=== PATIENT | female | born 1985 | race Caucasian/White ===

== ENCOUNTER 2018-09-10 13:56 | Emergency (ER) | payer OTHER ==
[~2018-09-10] VITALS: Ht 160 cm; Wt 80.7 kg
[~2018-09-10 13:56] MED LIST: CEPH500 PO; IBUP600 PO; LORA2 PO; Norco 5-325 Ta1 EACH PO; ONDA4ODT MM; Ultram50 MG PO; VICODIN 5-3001 EACH PO
[2018-09-10] MEDS ORDERED: Naprosyn500 MG PO (15:27)
[2018-09-10] MEDS ORDERED: Norco 5-325 Ta1 EACH PO (15:27)
[2018-09-27] MEDS ORDERED: CEPH500 PO (20:20)
== END 2018-09-10 15:57 | disposition home or self-care (01) ==
LOC: ER 13:56
DX: N94.6 Dysmenorrhea, unspecified (principal); F17.210 Nicotine dependence, cigarettes, uncomplicated
CPT/HCPCS: 36415; 84703; 99283

== ENCOUNTER 2018-09-17 18:12 | Emergency (ER) | payer OTHER ==
[~2018-09-17] VITALS: Ht 157.5 cm; Wt 81.7 kg
[~2018-09-17 18:12] MED LIST changes: +Naprosyn500 MG PO
[2018-09-27] MEDS ORDERED: CEPH500 PO (20:20)
== END 2018-09-17 20:18 | disposition home or self-care (01) ==
LOC: ER 18:12
DX: S61.011A Laceration without foreign body of right thumb without damage to nail, initial encounter (principal); Z23 Encounter for immunization; F17.210 Nicotine dependence, cigarettes, uncomplicated; W25.XXXA Contact with sharp glass, initial encounter
CPT/HCPCS: 12001; 90471; 90714; 99282-25

== ENCOUNTER 2019-02-16 04:58 | Emergency (ER) | payer OTHER ==
[~2019-02-16] VITALS: Ht 157.5 cm; Wt 81.7 kg
== END 2019-02-16 05:55 | disposition home or self-care (01) ==
LOC: ER 04:58
DX: J02.9 Acute pharyngitis, unspecified (principal); F17.210 Nicotine dependence, cigarettes, uncomplicated
CPT/HCPCS: 87081; 87430; 99283

== ENCOUNTER 2019-03-10 10:38 | Emergency (ER) | payer OTHER ==
[~2019-03-10] VITALS: Ht 157.5 cm; Wt 81.2 kg
[2019-03-10] MEDS ORDERED: Percocet 5-3251 EACH PO (11:36)
[2019-03-10] MEDS ORDERED: Robaxin-750750 MG PO (11:36)
== END 2019-03-10 11:45 | disposition home or self-care (01) ==
LOC: ER 10:38
DX: S46.811A Strain of other muscles, fascia and tendons at shoulder and upper arm level, right arm, initial encounter (principal); F17.210 Nicotine dependence, cigarettes, uncomplicated; X58.XXXA Exposure to other specified factors, initial encounter
CPT/HCPCS: 73030; 99283-25

== ENCOUNTER 2022-06-30 20:36 | Emergency (ER) | payer OTHER ==
[~2022-06-30] VITALS: Ht 157.5 cm; Wt 84.4 kg
[~2022-06-30 20:36] MED LIST changes: +Percocet 5-3251 EACH PO; +Robaxin-750750 MG PO
[2022-06-30 21:15] LABS: BASOPHILS ABSOLUTE AUTO 0.03 K/mm3 (0.00-0.23); BASOPHILS PERCENT AUTO 0 % (0-2); EOSINOPHILS ABSOLUTE AUTO 0.11 K/mm3 (0.00-0.68); EOSINOPHILS PERCENT AUTO 1 % (0-6); Hematocrit 41.7 % (33.0-51.0); Hemoglobin 14.2 g/dL (11.5-16.0); IMMATURE GRAN ABSOLUTE AUTO 0.03 K/mm3 (0.00-0.10); IMMATURE GRAN PERCENT AUTO 0 % (0-1); LYMPHOCYTES ABSOLUTE AUTO 3.15 K/mm3 (0.84-5.20); LYMPHOCYTES PERCENT AUTO 32 % (21-46); MONOCYTES ABSOLUTE AUTO 0.51 K/mm3 (0.16-1.47); MONOCYTES PERCENT AUTO 5 % (4-13); Mean Corpuscular HGB 32.6 pg (26.0-34.0); Mean Corpuscular HGB Conc 34.1 g/dL (31.5-36.5); Mean Corpuscular Volume 96 fL (80-100); Mean Platelet Volume 9.4 fL (9.1-12.4); NEUTROPHILS ABSOLUTE AUTO 6.04 K/mm3 (1.96-9.15); NEUTROPHILS PERCENT AUTO 61 % (41-73); Platelet Count 276 K/mm3 (150-400); RDW Coefficient Variation 13.3 % (11.7-14.2); RDW Standard Deviation 47.6 fL (35.1-46.3); Red Blood Cell Count 4.36 M/mm3 (3.80-5.20); White Blood Cell Count 9.87 K/mm3 (4.00-11.30)
[2022-06-30 21:33] LABS: Albumin, Blood 4.1 g/dL (3.4-5.0); Bilirubin, Total 0.2 mg/dL (0.1-1.0); Calcium, Blood 9.6 mg/dL (8.5-10.1); Creatinine, Blood 0.84 mg/dL (0.40-1.00); Globulin, Blood 4.1 g/dL (2.2-4.0); Potassium, Blood 3.7 mmol/L (3.5-5.5); Total Protein, Blood 8.2 g/dL (6.4-8.2)
[2022-06-30 23:01] LABS: Source, Urine Clean Catch
[2022-06-30 23:03] LABS: Bilirubin, Urine Neg (Neg); Blood, Urine Neg (Neg); Glucose Qualitative, Urine Neg (Neg); Ketones, Urine Neg (Neg); Leukocyte Esterase, Urine Neg (Neg); Nitrite, Urine Neg (Neg); Protein, Urine Neg (Neg); Urobilinogen, Urine NORM (Normal)
[2022-06-30 23:14] LABS: Appearance, Urine Clear (Clear); Color, Urine Yellow (P-Yellow)
[2022-07-01] MEDS ORDERED: IBUP800 PO (01:10)
[2022-07-01] MEDS ORDERED: Norco 5-325 Ta1 EACH PO (01:10)
== END 2022-07-01 01:40 | disposition home or self-care (01) ==
LOC: ER 20:36
PROVIDERS: Student in an Organized Health Care Education/Training Program
DX: N83.202 Unspecified ovarian cyst, left side (principal); F17.210 Nicotine dependence, cigarettes, uncomplicated; Z79.899 Other long term (current) drug therapy
CPT/HCPCS: 36415; 74176; 76830; 76856; 80053; 81003; 84703; 85025; 99284-25

== ENCOUNTER 2025-09-09 09:33 | Day surgery (SDC) | payer OTHER ==
[~2025-09-09] VITALS: Ht 157.5 cm; Wt 86.8 kg
[~2025-09-09 09:33] MED LIST changes: +IBUP800 PO; +NS 500 ML IV ONE
[2025-09-09] MEDS ORDERED: CeFAZolin Sodium 2,000 MG VIAL ONE (10:17)
[2025-09-09] MEDS ORDERED: ATOR40TA (10:24)
[2025-09-09] MEDS ORDERED: AMLODIPINE BESY10 MG (10:24)
[2025-09-09] MEDS ORDERED: NS 500 ML IV ONE (10:32)
--- NOTE | 2025-09-09 10:44 | NUR ---
09/09/25 1044 Jeanine Sweeney LOCAL INJECTION OF RIGHT HAND IN PREOP TOTAL 5ML
[2025-09-09] MEDS ORDERED: Midazolam HCl 1MG / ML 2ML Vial ONE (11:08)
[2025-09-09] MEDS ORDERED: FentaNYL Citrate 50 MCG/ML 2 ML Injection ONE (11:08)
[2025-09-09 11:29] VITALS: BP 137/90
[2025-09-09] MEDS ORDERED: HYDROcodone 5-APAP 325 TAB ONE (11:49)
--- NOTE | 2025-09-09 12:00 | NUR ---
09/09/25 1200 YEISON FLEMING TRAVEL NURSE, BENNIE ASSISTING WITH CARE.
== END 2025-09-09 12:04 | disposition home or self-care (01) ==
LOC: ORSCSDS 09:33
PROVIDERS: Orthopaedic Surgery
PROC: 0LN70ZZ Release Right Hand Tendon, Open Approach (ICD-10-PCS; principal; 2025-09-09 11:00)
DX: M65.311 Trigger thumb, right thumb (principal); I10 Essential (primary) hypertension; E78.5 Hyperlipidemia, unspecified; E11.9 Type 2 diabetes mellitus without complications; Z79.899 Other long term (current) drug therapy; F17.210 Nicotine dependence, cigarettes, uncomplicated
CPT/HCPCS: A9270; J0690; J2250; J2704; J3010; J7040